=== PATIENT | female | born 1955 | race Caucasian/White ===

== ENCOUNTER 2018-09-14 20:37 | Emergency (ER) | payer MEDICAID, OTHER ==
[~2018-09-14] VITALS: Wt 88.3 kg
[2018-09-14] MEDS: LORAZEPAM 2 MG INJ IV ONE ×2 (22:30→22:32)
--- NOTE | 2018-09-14 22:39 | ERD ---
ER Documentation Chief Complaint Chief Complaint shortness of breath on and off for a few months, denies cp. HPI Patient is a 63-year-old female with no medical problems who presents with shortness of breath. She said that she feels like it is hard to breathe. It comes and goes and has been present for a few months. I asked if this could be anxiety but the daughter says she does not think this is anxiety. The patient denies pain. There is no chest pain. Upon review of old medical records the patient one previous visit to the ER in 2013. The patient and the daughter do not know the name of the primary doctor. ROS All systems reviewed and are negative except as per history of present illness. Allergies Allergies: Coded Allergies: No Known Allergy (Unverified , 01/01/14) PMhx/Soc History of Surgery: Yes (cholecystectomy) Anesthesia Reaction: No Hx Neurological Disorder: No Hx Respiratory Disorders: No Hx Cardiac Disorders: Yes (HLD) Hx Psychiatric Problems: Yes (DEPRESSION) Hx Miscellaneous Medical Probl: Yes (HYPOTHYROIDISM) Hx Alcohol Use: No Hx Substance Use: No Hx Tobacco Use: No Smoking Status: Never smoker FmHx Family History: No diabetes Physical Exam Vitals Vital Signs Date Temp Pulse Resp B/P (MAP) Pulse Ox O2 O2 Flow FiO2 Time Delivery Rate 09/14/18 78 23 133/73 97 Room Air 22:06 (93) 09/14/18 85 16 97 21 21:32 09/14/18 98.0 87 18 163/86 98 20:49 (111) Physical Exam Const: No acute distress Head: Atraumatic Eyes: Normal Conjunctiva ENT: Normal External Ears, Nose and Mouth. Neck: Full range of motion. No meningismus. Resp: Clear to auscultation bilaterally Cardio: Regular rate and rhythm, no murmurs Abd: Soft, non tender, non distended. Normal bowel sounds Skin: No petechiae or rashes Back: No midline or flank tenderness Ext: No cyanosis, or edema Neur: Awake and alert Psych: Anxious Result Diagram: 09/14/18211509/14/182115 Results 24 hrs Laboratory Tests Test 09/14/18 21:16 09/14/18 21:19 White Blood Count 7.5 10^3/ul Red Blood Count 4.40 10^6/ul Hemoglobin 12.7 g/dl Hematocrit 38.9 % Mean Corpuscular Volume 88.4 fl Mean Corpuscular Hemoglobin 28.9 pg Mean Corpuscular Hemoglobin Concent 32.6 g/dl Red Cell Distribution Width 13.2 % Platelet Count 264 10^3/UL Mean Platelet Volume 9.4 fl Immature Granulocytes % 0.300 % Neutrophils % 49.8 % Lymphocytes % 40.1 % Monocytes % 7.1 % Eosinophils % 1.9 % Basophils % 0.8 % Nucleated Red Blood Cells % 0.0 /100WBC Immature Granulocytes # 0.020 10^3/ul Neutrophils # 3.7 10^3/ul Lymphocytes # 3.0 10^3/ul Monocytes # 0.5 10^3/ul Eosinophils # 0.1 10^3/ul Basophils # 0.1 10^3/ul Nucleated Red Blood Cells # 0.0 10^3/ul Sodium Level 142 mmol/L Potassium Level 3.8 mmol/L Chloride Level 106 mmol/L Carbon Dioxide Level 28 mmol/L Anion Gap 8 Blood Urea Nitrogen 19 mg/dl Creatinine 0.65 mg/dl Est Glomerular Filtrat Rate mL/min > 60 mL/min Glucose Level 110 mg/dl Calcium Level 9.3 mg/dl Troponin I < 0.012 ng/ml POC Venous Lactate 1.4 mmol/L Current Medications Medications Dose Sig/Andrea Start Time Status Last (Trade) Ordered Route PRN Stop Time Admin Dose Reason Admin Lorazepam 0.5 mg ONCE ONCE 09/14/18 DC (Ativan) IV 22:30 09/14/18 22:31 Procedures/MDM EKG read by me: Rate/Rhythm: Regular rate and rhythm at a rate of 81 Intervals: Normal Impression: No evidence of ischemia or arrhythmia Chest x-ray negative for pneumonia or pneumothorax per radiology. Patient is a 63-year-old female with no medical problems who presents with shortness of breath. The patient has normal laboratory studies. Chest x-ray was negative for pneumonia or pneumothorax. The symptoms have been there for the past few months. I believe outpatient management is appropriate at this time. I doubt acute coronary syndrome, pneumonia, pneumothorax, pulmonary embolism, or aortic dissection. The patient will need close follow-up with the primary doctor within 24 to 48 hours. The patient can return for any worsening symptoms. Departure Diagnosis: Primary Impression: Shortness of breath Condition: Fair Patient Instructions: Dyspnea Referrals: BERTRAND DAVID DO (PCP) Additional Instructions: Call your primary care doctor TOMORROW for an appointment during the next 1-2 days.See the doctor sooner or return here if your condition worsens before your appointment time. ADRYAN ALFONSO MD September 14, 2018 22:39
[2018-09-14 22:53] VITALS: BP 131/73; PULSE 75; RESP 19
== END 2018-09-14 23:00 | disposition home or self-care (01) ==
LOC: E/R 20:37
DX: R06.02 Shortness of breath (principal); E03.9 Hypothyroidism, unspecified
CPT/HCPCS: 36415; 71045; 80048; 83605; 84484; 85025; 87040; 93005; J2060; Z7502; Z7610